=== PATIENT | male | born 1935 | race Caucasian/White ===

== ENCOUNTER 2017-09-19 10:35 | Emergency (ER) | payer MEDICARE, OTHER ==
[2017-09-19 10:50] VITALS: TEMP 97.9
--- NOTE | 2017-09-19 11:05 | ED.PDOC ---
History of Present Illness - General Chief Complaint: Chest Pain/TX Stated Complaint: L chest wall Time Seen by Provider: 09/19/17 10:59 Source: patient Exam Limitations: other - hard of hearing - History of Present Illness Timing/Duration: 1-3 hours Severity/Quality: moderate, other - burning to lateral L chest Location: other - lateral L chest Chest Pain Radiation: no radiation Activities at Onset: none Prior Chest Pain/Cardiac Workup: cardiac cath Improving Factors: rest Worsening Factors: movement - and deep breathing Aspirin Treatment Today: unknown Associated Symptoms: nausea/vomiting, shortness of breath, weakness Allergies/Adverse Reactions: Allergies NO KNOWN ALLERGY Allergy (Verified 09/19/17 10:50) Home Medications: Ambulatory Orders Cyclobenzaprine HCl [Flexeril] 5 mg PO TID PRN #15 tab 09/19/17 Review of Systems - Review of Systems Constitutional: States: malaise EENTM: States: no symptoms reported Respiratory: States: no symptoms reported Cardiology: States: chest pain, edema - both lower legs Past Medical History (General) - Patient Medical History Hx Stroke: No Hx Cardiac Disorders: Yes - hypercholesterolemia; valve replacement - approx 2013 Hx Congestive Heart Failure: No Hx Pacemaker: Yes - Hx sinus sean, 2016 Hx Hypertension: Yes Hx Diabetes: No Hx Cancer: Yes - Prostate Surgical History: pacemaker, tonsillectomy, other - Vaccination History Hx Tetanus, Diphtheria Vaccination: Yes Hx Influenza Vaccination: Yes - 2017 Hx Pneumococcal Vaccination: Yes - Social History Hx Tobacco Use: No Hx Alcohol Use: Yes Hx Substance Use: No Hx Substance Use Treatment: No Hx Depression: No - Female History Patient : No Family Medical History - Family History Mother Family History: Unknown Living Status: Physical Exam - Physical Exam General Appearance: Alert, Comfortable Eyes, Ears, Nose, Throat Exam: PERRL/EOMI, pharynx normal Neck: non-tender, full range of motion Respiratory: chest non-tender, lungs clear Cardiovascular/Chest: normal peripheral pulses, regular rate, rhythm, no edema Gastrointestinal/Abdominal: normal bowel sounds, non tender, soft Extremity: normal range of motion, non-tender, pedal edema - 1-2+ at ankles Neurologic: clinical staff anesthesiologist II-XII nml as tested, no motor/sensory deficits, alert, normal mood/affect, oriented x 3 Skin Exam: normal color, warm/dry Lymphatic: no adenopathy Progress - EKG/XRAY/CT EKG: Sinus, no ST T wave changes, Abnormal Q waves - inferior infarct of indeterminate age Comments: Rate 70, WA 216, QRS 90 XRAY: chest - no acute findings Departure - Departure Clinical Impression: Left-sided chest wall pain Disposition: Discharge to Home or Self Care Departure Forms: ED Discharge - Pt. Copy, Patient Portal Self Enrollment Instructions: DI for Chest Pain Referrals: Prince Ortez MD [Primary Care Provider] - 1-2 Weeks Prescriptions: Cyclobenzaprine HCl [Flexeril] 5 mg PO TID PRN #15 tab PRN Reason: Muscle Spasms Home Medications: Ambulatory Orders Cyclobenzaprine HCl [Flexeril] 5 mg PO TID PRN #15 tab 09/19/17
--- NOTE | 2017-09-19 11:23 | RAD ---
EXAM DESCRIPTION: Chest,1 View CLINICAL HISTORY: L side chest pain, laterally COMPARISON: None FINDINGS: Cardiac silhouette is within normal limits. Patient is status post median sternotomy and heart valve surgery. Pacer leads project over the heart. There is atherosclerosis. EKG leads project over the chest. There is no focal parenchymal or pleural disease. There is no acute osseous process visualized. IMPRESSION: No evidence of acute cardiopulmonary disease. Electronically signed by: Yan Mcelroy MD 09/19/2017 11:22 AM CDT
[2017-09-19 12:17] VITALS: BP 142/82; O2SAT 97
== END 2017-09-19 12:25 | disposition home or self-care (01) ==
LOC: ER 10:35
DX: R07.1 Chest pain on breathing (principal); R11.2 Nausea with vomiting, unspecified; R06.02 Shortness of breath; R53.1 Weakness; E78.00 Pure hypercholesterolemia, unspecified; I10 Essential (primary) hypertension; Z95.0 Presence of cardiac pacemaker; Z95.2 Presence of prosthetic heart valve; Z85.46 Personal history of malignant neoplasm of prostate

== ENCOUNTER 2018-11-27 20:56 | Emergency (ER) | payer MEDICARE, OTHER ==
[2018-11-27] MEDS ORDERED: ASPIRIN TABLET 325 MG TAB PO ONE (21:33)
[2018-11-27] MEDS ORDERED: SODIUM CHLORIDE 0.9% (FLUSH) 10 ML SYG IV PRN (21:33)
--- NOTE | 2018-11-27 21:49 | RAD ---
EXAM: Chest,1 View CLINICAL INDICATION: Chest pain COMPARISON: 09/19/2017 FINDINGS: A single view of the chest was obtained. The heart size is normal. There is a left-sided pacemaker. Surgical changes from artificial heart valve surgery are noted. The pulmonary vascularity is unremarkable. The lungs are clear. There is no consolidation, infiltrate, pleural effusion, or pneumothorax. IMPRESSION: No evidence of active pulmonary disease. Electronically signed by: Nacho Sorto MD 11/27/2018 9:48 PM CDT
--- NOTE | 2018-11-27 22:11 | ED.PDOC ---
History of Present Illness - General Chief Complaint: Blood Pressure Problem Stated Complaint: elevated bp, not feeling good Time Seen by Provider: 11/27/18 21:33 Source: patient, RN notes reviewed, Vital Signs reviewed, family - son - History of Present Illness Timing/Duration: 7-24 hours Severity: mild Location: other - left lower chest and right lower chest Activities at Onset: none Prior Chest Pain/Cardiac Workup: cardiac cath, other - replacement Improving Factors: nothing Worsening Factors: nothing Nitro Today/Relief: no nitro taken today Aspirin Treatment Today: unknown Associated Symptoms: denies symptoms Allergies/Adverse Reactions: Allergies NO KNOWN ALLERGY Allergy (Verified 09/19/17 10:50) Home Medications: Ambulatory Orders Atorvastatin Calcium [Lipitor] 20 mg PO BEDTIME 11/27/18 Lisinopril 5 mg PO DAILY 11/27/18 Metoprolol Tartrate 25 mg PO BID 11/27/18 Review of Systems - Review of Systems Constitutional: States: no symptoms reported EENTM: States: no symptoms reported Respiratory: States: no symptoms reported Cardiology: States: chest pain Gastrointestinal/Abdominal: States: no symptoms reported Genitourinary: States: no symptoms reported Musculoskeletal: States: no symptoms reported Skin: States: no symptoms reported Neurological: States: no symptoms reported Endocrine: States: no symptoms reported All other Systems: Reviewed and Negative Past Medical History (General) - Patient Medical History Hx Stroke: No Hx Cardiac Disorders: Yes - hypercholesterolemia; valve replacement - approx 2013 Hx Congestive Heart Failure: No Hx Pacemaker: Yes - Hx sinus sean, 2016 Hx Hypertension: Yes Hx Diabetes: No Hx Cancer: Yes - Prostate Surgical History: pacemaker - Vaccination History Hx Tetanus, Diphtheria Vaccination: Yes Hx Influenza Vaccination: Yes Hx Pneumococcal Vaccination: No - Social History Hx Tobacco Use: No Hx Alcohol Use: Yes Hx Substance Use: No Hx Substance Use Treatment: No Hx Depression: No - Female History Patient : No Family Medical History - Family History Mother Family History: Unknown Living Status: Physical Exam - Physical Exam General Appearance: Alert, Comfortable, Well Developed, Well Groomed, Well Hydrated, Well Nourished Eyes, Ears, Nose, Throat Exam: PERRL/EOMI, normal ENT inspection, pharynx normal Neck: non-tender, full range of motion, supple, normal inspection Respiratory: chest non-tender, lungs clear, normal breath sounds, no respiratory distress, no accessory muscle use Cardiovascular/Chest: normal peripheral pulses, regular rate, rhythm, no edema, no gallop, no JVD, no murmur Peripheral Pulses: radial,right: 2+, radial,left: 2+ Gastrointestinal/Abdominal: normal bowel sounds, non tender, soft, no organomegaly Extremity: normal range of motion, non-tender, normal inspection, no pedal edema 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 Patient is chest pain-free. His EKG is normal. Labs are unremarkable. The chest pain was over 10 hours ago. The chest pain was very transitory and atypical in nature for cardiac chest pain. The chest pain was very transitory nature and unlikely to be PE. Discharge patient home with follow-up with PCP. I've discussed the plan of care with the patient and son and they voice understanding and agreement. Justin Mauro M.D. #[id number] - Results/Orders Results/Orders: 11/27/18 21:33 Telemetry .ONCE Sodium Chloride 0.9% (Flush) [Saline Flush Syringe] 10 ml IV PRN PRN EKG Stat Pulse Ox Stat Laboratory Results - last 24 hr 11/27/18 21:33 WBC 4.5 L RBC 4.48 L Hgb 13.8 L Hct 41.8 L MCV 93.2 MCH 30.9 MCHC 33.1 RDW 14.2 Plt Count 179 MPV 8.4 Absolute Neuts (auto) 3.10 Absolute Lymphs (auto) 1.00 Absolute Monos (auto) 0.30 Absolute Eos (auto) 0.00 Absolute Basos (auto) 0.00 Neutrophils % 69.6 Lymphocytes % 21.2 Monocytes % 7.6 Eosinophils % 0.9 L Basophils % 0.7 PT 10.4 INR 1.04 PTT (SP) 20.5 L Sodium 140 Potassium 4.1 Chloride 104 Carbon Dioxide 23 Anion Gap 17.1 BUN 22 H Creatinine 1.46 H BUN/Creatinine Ratio 15.1 Random Glucose 184 H Serum Osmolality 287.5 Calcium 9.1 Magnesium 2.1 Total Bilirubin 0.7 Direct Bilirubin < 0.1 Indirect Bilirubin 0.6 AST 24 ALT 11 Alkaline Phosphatase 46 Creatine Kinase 42 CK-MB (CK-2) 1.6 CK-MB (CK-2) % Not Reportable Troponin I 0.02 B-Natriuretic Peptide 140.0 H Serum Total Protein 7.0 Albumin 4.0 EXAM: Chest,1 View CLINICAL INDICATION: Chest pain COMPARISON: 09/19/2017 FINDINGS: A single view of the chest was obtained. The heart size is normal. There is a left-sided pacemaker. Surgical changes from artificial heart valve surgery are noted. The pulmonary vascularity is unremarkable. The lungs are clear. There is no consolidation, infiltrate, pleural effusion, or pneumothorax. IMPRESSION: No evidence of active pulmonary disease. Electronically signed by: Nacho Sorto MD 11/27/2018 9:48 PM Departure - Departure Clinical Impression: Uncontrolled hypertension, Atypical chest pain Time of Disposition: 22:26 Disposition: Discharge to Home or Self Care Condition: Good Departure Forms: ED Discharge - Pt. Copy, Patient Portal Self Enrollment Instructions: DI for High Blood Pressure, Chest Pain That Is Not Caused by the Heart (DC) Referrals: Prince Ortez MD [Primary Care Provider] - 1-2 Days Home Medications: Ambulatory Orders Atorvastatin Calcium [Lipitor] 20 mg PO BEDTIME 11/27/18 Lisinopril 5 mg PO DAILY 11/27/18 Metoprolol Tartrate 25 mg PO BID 11/27/18
[2018-11-27 22:51] VITALS: BP 157/92; TEMP 96; O2SAT 98
== END 2018-11-27 22:51 | disposition home or self-care (01) ==
LOC: ER 20:56
DX: R07.89 Other chest pain (principal); I10 Essential (primary) hypertension; E78.00 Pure hypercholesterolemia, unspecified; Z95.0 Presence of cardiac pacemaker; Z95.2 Presence of prosthetic heart valve; Z85.46 Personal history of malignant neoplasm of prostate; Z79.899 Other long term (current) drug therapy